=== PATIENT | male | born 1975 | race Caucasian/White ===

== ENCOUNTER 2018-08-09 15:22 | Inpatient (IN) | payer MEDICAID ==
[2018-08-09 16:23] LABS: ADD MAN DIFF? NO
[2018-08-09 16:32] LABS: BASOPHILS % 0.5 % (0.0-2.0); EOSINOPHILS # 0.2 10^3/ul (0.0-0.5); EOSINOPHILS % 2.5 % (0.0-7.0); HEMATOCRIT 41.7 % (42.0-52.0); HEMOGLOBIN 14.3 g/dl (14.0-18.0); LYMPHOCYTES # 2.2 10^3/ul (0.8-2.9); LYMPHOCYTES % 30.6 % (15.0-51.0); MEAN CORPUSCULAR HEMOGLOBIN 29.2 pg (29.0-33.0); MEAN CORPUSCULAR HGB CONC 34.3 g/dl (32.0-37.0); MEAN CORPUSCULAR VOLUME 85.3 fl (82.0-101.0); MEAN PLATELET VOLUME 11.3 fl (7.4-10.4); MONOCYTE # 0.6 10^3/ul (0.3-0.9); MONOCYTES % 8.5 % (0.0-11.0); NEUTROPHIL # 4.2 10^3/ul (1.6-7.5); NEUTROPHILS % 57.6 % (39.0-77.0); PLATELET COUNT 220 10^3/UL (140-415); RED BLOOD COUNT 4.89 10^6/ul (4.70-6.10); RED CELL DISTRIBUTION WIDTH 11.7 % (11.5-14.5)
[2018-08-09 16:32] LABS: WHITE BLOOD COUNT 7.3 10^3/ul (4.8-10.8)
[2018-08-09 16:47] LABS: ANION GAP 8 (5-13); BLOOD UREA NITROGEN 19 mg/dl (7-20); CARBON DIOXIDE 28 mmol/L (21-31); CHLORIDE 96 mmol/L (97-110); CREATININE 0.93 mg/dl (0.61-1.24); Estimated GFR > 60 mL/min (>60); GLUCOSE 393 mg/dl (70-220); POTASSIUM 4.2 mmol/L (3.5-5.1); SODIUM 132 mmol/L (135-144)
[2018-08-09 16:53] LABS: INR 0.88; PT RATIO 0.9
[2018-08-09 16:54] LABS: PARTIAL THROMBOPLASTIN TIME 26.3 Sec (23.0-35.0)
[2018-08-09] MEDS: ONDANSETRON 4 MG INJ IV (17:15)
[2018-08-09] MEDS: morphine 4 MG/ML VIAL IV (17:15)
[2018-08-09] MEDS: SOD CHLORIDE 0.9% 1,000 ML IV (17:20)
[2018-08-09] MEDS: IOHEXOL 350MG/ML 50 ML BTL (17:26)
[2018-08-09] MEDS: SOD CHLORIDE 0.9% 100 ML (17:26)
[2018-08-09] MEDS: IOHEXOL 100 ML (17:26)
[2018-08-09] MEDS: ACETAMINOPHEN 500 MG TAB PO (18:08)
[2018-08-09] MEDS ORDERED: ONDANSETRON 4 MG INJ IV ×2 (20:30→21:30)
[2018-08-09] MEDS: HEPARIN 1000 UNITS/ML 10 ML INJ IV ×2 (20:30→22:13)
[2018-08-09] MEDS ORDERED: ACETAMINOPHEN 325 MG TAB PO (20:30)
[2018-08-09] MEDS: HEPARIN 25000 UNITS/250 ML 250 ML IV ×2 (20:37→22:19)
[2018-08-09] MEDS ORDERED: NACL 0.9% 3 ML SYG IV (21:30)
[2018-08-09] MEDS ORDERED: morphine 2 MG INJ IV (21:30)
[2018-08-09] MEDS ORDERED: HYDROCODONE/APAP (5/325) TAB PO (21:30)
[2018-08-09] MEDS ORDERED: NITROGLYCERIN (SL) 0.4 MG TAB SL (21:30)
[2018-08-09] MEDS ORDERED: GLUCOSE GEL 15 GRAM TUBE PO ×2 (22:00)
[2018-08-09] MEDS ORDERED: DEXTROSE 50% 50 ML SYRINGE IV ×2 (22:00)
[2018-08-09] MEDS ORDERED: GLUCOSE GEL 15 GRAM TUBE BUCCAL (22:00)
[2018-08-09] MEDS ORDERED: GLUCAGON 1 MG INJ IM (22:00)
[2018-08-09] MEDS: LISINOPRIL 20 MG TAB PO (22:23)
[2018-08-10] MEDS: SOD CHLORIDE 0.9% 1,000 ML IV ×2 (00:36→12:21)
[2018-08-10] MEDS: INSULIN ASPART [NOVOLOG] 3 ML PEN SC ×4 (00:41→17:20)
[2018-08-10] MEDS: ACCU-CHEK XX (02:00)
[2018-08-10] MEDS ORDERED: HEPARIN 1000 UNITS/ML 10 ML INJ IV ×2 (03:00)
[2018-08-10 05:25] LABS: ADD MAN DIFF? NO
[2018-08-10 05:28] LABS: BASOPHIL # 0.1 10^3/ul (0.0-0.1); BASOPHILS % 0.7 % (0.0-2.0); EOSINOPHILS # 0.3 10^3/ul (0.0-0.5); EOSINOPHILS % 4.5 % (0.0-7.0); HEMATOCRIT 39.4 % (42.0-52.0); HEMOGLOBIN 13.9 g/dl (14.0-18.0); LYMPHOCYTES # 2.5 10^3/ul (0.8-2.9); LYMPHOCYTES % 33.8 % (15.0-51.0); MEAN CORPUSCULAR HGB CONC 35.3 g/dl (32.0-37.0); MEAN CORPUSCULAR VOLUME 84.9 fl (82.0-101.0); MONOCYTE # 0.6 10^3/ul (0.3-0.9); MONOCYTES % 8.4 % (0.0-11.0); NEUTROPHIL # 3.8 10^3/ul (1.6-7.5); NEUTROPHILS % 52.5 % (39.0-77.0); PLATELET COUNT 193 10^3/UL (140-415); RED BLOOD COUNT 4.64 10^6/ul (4.70-6.10)
[2018-08-10 05:28] LABS: WHITE BLOOD COUNT 7.3 10^3/ul (4.8-10.8)
[2018-08-10 05:45] LABS: INR 1.01; PROTIME 13.4 Sec (11.9-14.9)
[2018-08-10 05:46] LABS: CHOL/HDL RATIO 4.4 RATIO; CHOLESTEROL 201 mg/dl (100-200); HDL CHOLESTEROL 45 mg/dl (27-67); LDL CHOLESTEROL,CALCULATED 123 mg/dl; TRIGLYCERIDES 166 mg/dl (0-149)
[2018-08-10 05:47] LABS: HEMOGLOBIN A1C 13.9 % (0-5.9)
[2018-08-10 05:48] LABS: ALANINE AMINOTRANSFERASE 36 IU/L (13-69); ALBUMIN 3.2 g/dl (3.3-4.9); ALBUMIN/GLOBULIN RATIO 0.88; ALKALINE PHOSPHATASE 99 IU/L (42-121); ANION GAP 6 (5-13); ASPARTATE AMINO TRANSFERASE 29 IU/L (15-46); BILIRUBIN,INDIRECT 0.3 mg/dl (0-1.1); BILIRUBIN,TOTAL 0.3 mg/dl (0.2-1.3); BLOOD UREA NITROGEN 13 mg/dl (7-20); CALCIUM 8.2 mg/dl (8.4-10.2); CARBON DIOXIDE 26 mmol/L (21-31); CHLORIDE 106 mmol/L (97-110); CREATININE 0.64 mg/dl (0.61-1.24); Estimated GFR > 60 mL/min (>60); GLUCOSE 277 mg/dl (70-220); POTASSIUM 3.7 mmol/L (3.5-5.1); SODIUM 138 mmol/L (135-144); TOTAL PROTEIN 6.8 g/dl (6.1-8.1)
[2018-08-10 05:56] LABS: PARTIAL THROMBOPLASTIN TIME > 180.0 Sec (23.0-35.0)
[2018-08-10] MEDS: HEPARIN 25000 UNITS/250 ML 250 ML IV ×4 (07:26→18:13)
[2018-08-10] MEDS: LISINOPRIL 20 MG TAB PO (08:21)
[2018-08-10 09:12] LABS: PARTIAL THROMBOPLASTIN TIME 74.2 Sec (23.0-35.0)
[2018-08-10] MEDS: Insulin NOVOLOG SS MILD Algorithm (SS with meals and bedtime) SC ×3 (11:20→21:17)
[2018-08-10] MEDS ORDERED: INSULIN ASPART [NOVOLOG] 3 ML PEN SC (11:30)
[2018-08-10 15:21] LABS: PARTIAL THROMBOPLASTIN TIME 66.6 Sec (23.0-35.0)
[2018-08-10] MEDS: INSULIN GLARGINE [LANTus] (100 UNITS/ML) SYG SC (20:22)
[2018-08-10] MEDS: ATORVASTATIN 40 MG TAB PO (21:15)
[2018-08-10] MEDS: ACETAMINOPHEN 325 MG TAB PO (21:24)
[2018-08-10 23:05] LABS: PARTIAL THROMBOPLASTIN TIME 78.7 Sec (23.0-35.0)
[2018-08-11] MEDS: ACCU-CHEK XX (02:00)
[2018-08-11] MEDS: SOD CHLORIDE 0.9% 1,000 ML IV ×3 (02:40→16:00)
[2018-08-11 05:37] LABS: ADD MAN DIFF? NO
[2018-08-11 05:42] LABS: WHITE BLOOD COUNT 6.6 10^3/ul (4.8-10.8)
[2018-08-11 05:42] LABS: BASOPHILS % 0.5 % (0.0-2.0); EOSINOPHILS # 0.2 10^3/ul (0.0-0.5); EOSINOPHILS % 3.3 % (0.0-7.0); HEMATOCRIT 40.2 % (42.0-52.0); HEMOGLOBIN 13.7 g/dl (14.0-18.0); LYMPHOCYTES # 2.2 10^3/ul (0.8-2.9); LYMPHOCYTES % 32.8 % (15.0-51.0); MEAN CORPUSCULAR HEMOGLOBIN 29.5 pg (29.0-33.0); MEAN CORPUSCULAR HGB CONC 34.1 g/dl (32.0-37.0); MEAN CORPUSCULAR VOLUME 86.6 fl (82.0-101.0); MONOCYTE # 0.7 10^3/ul (0.3-0.9); MONOCYTES % 10.5 % (0.0-11.0); NEUTROPHIL # 3.5 10^3/ul (1.6-7.5); NEUTROPHILS % 52.7 % (39.0-77.0); PLATELET COUNT 212 10^3/UL (140-415); RED BLOOD COUNT 4.64 10^6/ul (4.70-6.10); RED CELL DISTRIBUTION WIDTH 12.3 % (11.5-14.5)
[2018-08-11 06:30] LABS: ALANINE AMINOTRANSFERASE 37 IU/L (13-69); ALBUMIN 3.2 g/dl (3.3-4.9); ALBUMIN/GLOBULIN RATIO 0.91; ALKALINE PHOSPHATASE 82 IU/L (42-121); ANION GAP 6 (5-13); ASPARTATE AMINO TRANSFERASE 38 IU/L (15-46); BILIRUBIN,INDIRECT 0.4 mg/dl (0-1.1); BILIRUBIN,TOTAL 0.4 mg/dl (0.2-1.3); BLOOD UREA NITROGEN 8 mg/dl (7-20); CALCIUM 8.6 mg/dl (8.4-10.2); CARBON DIOXIDE 27 mmol/L (21-31); CHLORIDE 106 mmol/L (97-110); CREATININE 0.66 mg/dl (0.61-1.24); Estimated GFR > 60 mL/min (>60); GLUCOSE 246 mg/dl (70-220); POTASSIUM 3.9 mmol/L (3.5-5.1); SODIUM 139 mmol/L (135-144); TOTAL PROTEIN 6.7 g/dl (6.1-8.1)
[2018-08-11 07:13] LABS: PHOSPHORUS 5.1 mg/dl (2.5-4.9)
[2018-08-11 07:28] LABS: ERYTHROCYTE SEDIMENTATION RATE 35 mm/Hr (0-15)
[2018-08-11 07:32] LABS: C-REACTIVE PROTEIN 0.7 mg/dl (0.0-0.9)
[2018-08-11 07:40] LABS: PARTIAL THROMBOPLASTIN TIME 112.5 Sec (23.0-35.0)
[2018-08-11] MEDS: INSULIN ASPART [NOVOLOG] 3 ML PEN SC ×3 (08:18→17:41)
[2018-08-11] MEDS: Insulin NOVOLOG SS MILD Algorithm (SS with meals and bedtime) SC ×4 (08:18→20:52)
[2018-08-11] MEDS: LISINOPRIL 20 MG TAB PO (09:00)
[2018-08-11] MEDS: hydrALAzine 20 MG INJ IV (09:00)
[2018-08-11] MEDS: HEPARIN 25000 UNITS/250 ML 250 ML IV ×2 (10:52→12:40)
[2018-08-11] MEDS: ACETAMINOPHEN 325 MG TAB PO ×2 (12:24→18:20)
[2018-08-11 12:36] LABS: PARTIAL THROMBOPLASTIN TIME 63.3 Sec (23.0-35.0)
[2018-08-11] MEDS: CIPROFLOXACIN 0.3% 2.5 ML OPH RIGHT EYE ×3 (15:17→21:51)
[2018-08-11 18:07] LABS: PARTIAL THROMBOPLASTIN TIME 91.6 Sec (23.0-35.0)
[2018-08-11] MEDS: ATORVASTATIN 40 MG TAB PO (20:44)
[2018-08-11] MEDS: MUPIROCIN 2% 22 GM OINT TOP (20:47)
[2018-08-11] MEDS: INSULIN GLARGINE [LANTus] (100 UNITS/ML) SYG SC (20:51)
[2018-08-11] MEDS: CEFAZOLIN 1 GM/50 ML (PMX) 50 ML IVPB (21:51)
[2018-08-12 00:09] LABS: PARTIAL THROMBOPLASTIN TIME 105.2 Sec (23.0-35.0)
[2018-08-12] MEDS: CIPROFLOXACIN 0.3% 2.5 ML OPH RIGHT EYE ×4 (01:56→13:05)
[2018-08-12] MEDS: ACCU-CHEK XX (01:59)
[2018-08-12] MEDS: HEPARIN 25000 UNITS/250 ML 250 ML IV (03:03)
[2018-08-12] MEDS: CEFAZOLIN 1 GM/50 ML (PMX) 50 ML IVPB ×2 (05:55→14:11)
[2018-08-12 07:39] LABS: ADD MAN DIFF? NO
[2018-08-12 07:41] LABS: BASOPHILS % 0.4 % (0.0-2.0); EOSINOPHILS # 0.2 10^3/ul (0.0-0.5); EOSINOPHILS % 2.7 % (0.0-7.0); HEMATOCRIT 42.3 % (42.0-52.0); HEMOGLOBIN 14.3 g/dl (14.0-18.0); LYMPHOCYTES # 1.6 10^3/ul (0.8-2.9); LYMPHOCYTES % 21.8 % (15.0-51.0); MEAN CORPUSCULAR HEMOGLOBIN 29.1 pg (29.0-33.0); MEAN CORPUSCULAR HGB CONC 33.8 g/dl (32.0-37.0); MEAN PLATELET VOLUME 11.2 fl (7.4-10.4); MONOCYTE # 0.7 10^3/ul (0.3-0.9); MONOCYTES % 9.7 % (0.0-11.0); NEUTROPHIL # 4.8 10^3/ul (1.6-7.5); PLATELET COUNT 214 10^3/UL (140-415); RED BLOOD COUNT 4.92 10^6/ul (4.70-6.10); RED CELL DISTRIBUTION WIDTH 12.4 % (11.5-14.5)
[2018-08-12 07:41] LABS: WHITE BLOOD COUNT 7.4 10^3/ul (4.8-10.8)
[2018-08-12 08:07] LABS: ALANINE AMINOTRANSFERASE 41 IU/L (13-69); ALBUMIN 3.5 g/dl (3.3-4.9); ALBUMIN/GLOBULIN RATIO 0.97; ALKALINE PHOSPHATASE 82 IU/L (42-121); ANION GAP 6 (5-13); ASPARTATE AMINO TRANSFERASE 35 IU/L (15-46); BILIRUBIN,INDIRECT 0.4 mg/dl (0-1.1); BILIRUBIN,TOTAL 0.4 mg/dl (0.2-1.3); BLOOD UREA NITROGEN 9 mg/dl (7-20); CALCIUM 9.1 mg/dl (8.4-10.2); CARBON DIOXIDE 26 mmol/L (21-31); CHLORIDE 105 mmol/L (97-110); CREATININE 0.75 mg/dl (0.61-1.24); Estimated GFR > 60 mL/min (>60); GLUCOSE 253 mg/dl (70-220); POTASSIUM 3.9 mmol/L (3.5-5.1); SODIUM 137 mmol/L (135-144); TOTAL PROTEIN 7.1 g/dl (6.1-8.1)
[2018-08-12 08:09] LABS: PHOSPHORUS 5.2 mg/dl (2.5-4.9)
[2018-08-12 08:18] LABS: PARTIAL THROMBOPLASTIN TIME 109.1 Sec (23.0-35.0)
[2018-08-12] MEDS: LISINOPRIL 20 MG TAB PO (08:26)
[2018-08-12] MEDS: MUPIROCIN 2% 22 GM OINT TOP (08:27)
[2018-08-12] MEDS: ACETAMINOPHEN 325 MG TAB PO (08:27)
[2018-08-12] MEDS: Insulin NOVOLOG SS MILD Algorithm (SS with meals and bedtime) SC ×2 (08:30→13:04)
[2018-08-12] MEDS: INSULIN ASPART [NOVOLOG] 3 ML PEN SC ×2 (08:31→13:05)
[2018-08-12] MEDS: CHOLECALCIFEROL 2,000 UNIT CAP PO (13:01)
[2018-08-12] MEDS ORDERED: metFORMIN 500 MG TAB PO (18:00)
== END 2018-08-12 18:20 | disposition home or self-care (01) | DRG 301 ==
LOC: E/R 15:22 → 2NE 08-10 20:45 → 6WM 20:04
PROVIDERS: Family Medicine
DX: E11.52 Type 2 diabetes mellitus with diabetic peripheral angiopathy with gangrene (principal); I77.1 Stricture of artery; E11.9 Type 2 diabetes mellitus without complications; I10 Essential (primary) hypertension; E66.9 Obesity, unspecified; Z68.32 Body mass index [BMI] 32.0-32.9, adult; E78.5 Hyperlipidemia, unspecified
CPT/HCPCS: 36415; 70450; 71045; 73630; 73706; 80048; 80053; 80061; 82306; 82652; 82962; 83036; 83605; 83735; 84100; 84443; 85025; 85610; 85651; 85730; 86140; 87070; 93005; 93922; 99285-25